=== PATIENT | male | born 1975 | race Caucasian/White ===

== ENCOUNTER 2021-05-05 07:15 | Emergency (ER) | payer OTHER | END 2021-05-05 09:40 | disposition home or self-care (01) | LOC: JD.ED 07:15 | DX: R07.89 Other chest pain (principal); I10 Essential (primary) hypertension; R51.9 Headache, unspecified; G25.81 Restless legs syndrome; Z79.899 Other long term (current) drug therapy | CPT/HCPCS: 36415; 71045; 71045-26; 80053; 83735; 84484; 85025; 85379; 86140; 93005; 93010; 99285; 99285-25 ==